=== PATIENT | male | born 1975 | race Caucasian/White ===

== ENCOUNTER 2018-04-03 18:56 | Emergency (ER) | payer SELFPAY ==
[2018-04-03] MEDS ORDERED: traMADol 50 MG Tab PO ONE (19:01)
--- NOTE | 2018-04-03 19:06 | EDM.PDOC ---
ED HPI GENERAL MEDICAL PROBLEM - General Chief Complaint: Lower Extremity Injury/Pain Stated Complaint: PT HURT LT LEG Time Seen by Provider: 04/03/18 19:03 Source of Information: Reports: Patient History Limitations: Reports: No Limitations - History of Present Illness INITIAL COMMENTS - FREE TEXT/NARRATIVE: HISTORY AND PHYSICAL: History of present illness: Patient is a 42-year-old male here with complaint of left ankle injury. He states he was helping move a by mouth downstairs and he tripped and twisted his left ankle. He has history of surgery on the ankle 20 years ago. Patient reports significant amount of pain to the lateral ankle. He denies any nausea, vomiting, diarrhea, abdominal pain, chest pain, shortness of breath. Review of systems: As per history of present illness and below otherwise all systems reviewed and negative. Past medical history: As per history of present illness and as reviewed below otherwise noncontributory. Surgical history: As per history of present illness and as reviewed below otherwise noncontributory. Social history: No reported history of drug or alcohol abuse. Family history: As per history of present illness and as reviewed below otherwise noncontributory. Physical exam: General: Patient sitting on exam bed writhing and crying in pain but in no acute distress HEENT: Atraumatic, normocephalic, pupils reactive, negative for conjunctival pallor or scleral icterus, mucous membranes moist, throat clear, neck supple, nontender, trachea midline. Lungs: Clear to auscultation, breath sounds equal bilaterally, chest nontender. Heart: S1S2, regular, negative for clicks, rubs, or JVD. Abdomen: Soft, nondistended, nontender. Negative for masses or hepatosplenomegaly. Extremities: There is an old surgical scar noted to the left lateral ankle. No obvious swelling, ecchymosis or deformity. Skin is intact. Pain with tib-fib squeeze test. Tender to palpation of left lateral malleolus. Exam was limited due to patient's pain. negative for cords or calf pain. Neurovascular unremarkable. Neuro: Awake, alert, oriented. Cranial nerves II through XII unremarkable. Cerebellum unremarkable. Motor and sensory unremarkable throughout. Exam nonfocal. Notes: Patient offered IM ketorolac and IV morphine which he declined reporting he does not like needles and would like something by mouth. Diagnostics: X-ray left ankle Therapeutics: Tramadol 100mg PO CAM boot Prescriptions: [place] 5/325 #6 Impression: Left ankle injury Plan: 1. Take motrin or tylenol as needed. May take [place] as needed for severe pain. 2. Follow up with orthopedics 3. Return to ED as needed as discussed Definitive disposition and diagnosis as appropriate pending reevaluation and review of above. L ankle Pain Score (Numeric/FACES): 10 - Related Data Allergies Allergy/AdvReac Type Severity Reaction Status Date / Time No Known Allergies Allergy Verified 04/03/18 19:05 Home Meds: Home Meds . [No Known Home Meds] 04/03/18 [History] Review of Systems - Review of Systems Review Of Systems: ROS reveals no pertinent complaints other than HPI. ED EXAM, GENERAL - Physical Exam Exam: See Below (see dictation) Course - Vital Signs Last Recorded V/S: Last Vital Signs Temp 36.3 C 04/03/18 19:02 Pulse 93 04/03/18 19:02 Resp 16 04/03/18 19:02 BP 143/72 H 04/03/18 19:02 Pulse Ox 100 04/03/18 19:02 - Orders/Labs/Meds Orders: Active Orders 24 hr Category Date Time Status Ankle Min 3V Lt [CR] Stat Exams 04/03/18 18:59 Taken Meds: Medications Discontinued Medications Generic Name Dose Route Start Last Admin Trade Name William PRN Reason Stop Dose Admin Tramadol HCl 100 mg 04/03/18 19:01 04/03/18 19:10 Ultram PO 04/03/18 19:02 100 mg ONETIME ONE Administration Departure - Departure Time of Disposition: 19:59 Disposition: Home, Self-Care 01 Condition: Good Clinical Impression: Left ankle injury - Discharge Information Forms: ED Department Discharge Additional Instructions: The following information is given to patients seen in the emergency department who are being discharged to home. This information is to outline your options for follow-up care. We provide all patients seen in our emergency department with a follow-up referral. The need for follow-up, as well as the timing and circumstances, are variable depending upon the specifics of your emergency department visit. If you don't have a primary care physician on staff, we will provide you with a referral. We always advise you to contact your personal physician following an emergency department visit to inform them of the circumstance of the visit and for follow-up with them and/or the need for any referrals to a consulting specialist. The emergency department will also refer you to a specialist when appropriate. This referral assures that you have the opportunity for follow-up care with a specialist. All of these measure are taken in an effort to provide you with optimal care, which includes your follow-up. Under all circumstances we always encourage you to contact your private physician who remains a resource for coordinating your care. When calling for follow-up care, please make the office aware that this follow-up is from your recent emergency room visit. If for any reason you are refused follow-up, please contact the Emergency Department at and asked to speak to the emergency department charge nurse. [facility] [address], [address] [place] [address] 1. Take motrin or tylenol as needed. May take [place] as needed for severe pain. 2. Follow up with orthopedics 3. Return to ED as needed as discussed - My Orders Last 24 Hours: My Active Orders 04/03/18 18:59 Ankle Min 3V Lt [CR] Stat - Assessment/Plan Last 24 Hours: My Active Orders 04/03/18 18:59 Ankle Min 3V Lt [CR] Stat
--- NOTE | 2018-04-04 14:46 | CR ---
EXAM DATE: 04/03/18 PATIENT'S AGE: 42 Patient: RENITA ORR Facility: [place], [place] Site . Site : [id number] Study: XRay Extremity Left ankle [id number]/[id number] 7:21:15 PM Ordering Physician: Doctor Blum Final Report: INDICATION: Fall down stairs. History of ankle surgery 20 years ago. COMPARISON: None. FINDINGS/IMPRESSION: Left ankle, 3 views. No definite acute fracture or dislocation identified. 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 Surgical plates affixed by multiple screws to the distal tibia and fibula, and a screw in the distal tibial anterior epiphyseal region with the screw tip in the ankle joint space. Intact hardware. 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 Moderate DJD of the subtalar joint. Small plantar calcaneal spur. Dictated by Kunal Montelongo MD @ 04/03/2018 7:48:53 PM Dictated by: Kunal Montelongo MD @ 04/03/2018 19:49:52 (Electronic Signature) Report Signed by Proxy. [facility]ITAL[facility]uliya
== END 2018-04-03 20:25 | disposition home or self-care (01) ==
LOC: MW.ED 18:56
DX: S99.912A Unspecified injury of left ankle, initial encounter (principal); W10.9XXA Fall (on) (from) unspecified stairs and steps, initial encounter
CPT/HCPCS: 73610; 99283; A9270

== ENCOUNTER 2018-04-04 03:45 | Emergency (ER) | payer SELFPAY ==
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
[2018-04-04 04:35] LABS: CHLORIDE,CL 102 mmol/L (98-107); SODIUM,NA 138 mmol/L (136-148)
[2018-04-04 04:38] LABS: ACETAMINOPHEN 3.1 ug/mL
== END 2018-04-04 08:25 ==
LOC: MW.ED 03:45
DX: F32.9 Major depressive disorder, single episode, unspecified (principal); F20.0 Paranoid schizophrenia
CPT/HCPCS: 36415; 80053; 80305; 81001; 83735; 84443; 85025; 93005; 99285; G0480; 99283